=== PATIENT | male | born 1995 | race Hispanic/Latino ===

== ENCOUNTER 2018-10-10 08:35 | Day surgery (SDC) | payer OTHER ==
[2018-10-10] MEDS ORDERED: ONDANSETRON 4 MG/2 ML VIAL ONE (09:32)
[2018-10-10] MEDS ORDERED: MORPHINE 4 MG/ML SYR ONE (09:32)
[2018-10-10] MEDS ORDERED: NA CHLORIDE 0.9% 1,000 ML ONE (09:33)
[2018-10-10 09:37] LABS: Absolute Lymphocytes (CBC) 0.8 K/uL (0.7-4.9); Absolute Monocytes 0.6 K/uL (0.1-1.3); Absolute Neutrophil 11.9 K/uL (1.8-8.0); Basophils % 0.1 % (0-1.3); Eosinophils % 0.3 % (0-4.4); Hematocrit 38.8 % (39.6-49.0); Lymphocytes % 6.1 % (15.3-44.8); MCH 32.8 pg (27.0-35.0); MCV 94.2 fL (80-100); MPV 10.4 fL (7.6-11.3); Monocytes % 4.4 % (3.3-12.3); RBC Red Blood Cell Count 4.12 M/uL (4.33-5.43)
[2018-10-10 09:44] LABS: ALT/SGPT 23 U/L (12-78); AST/SGOT 19 U/L (15-37); Albumin 4.4 g/dL (3.4-5.0); Alkaline Phosphatase 63 U/L (45-117); BUN Blood Urea Nitrogen 15 mg/dL (7-18); Bicarbonate 27 mmol/L (21-32); Bilirubin Direct 0.2 mg/dL (0-0.2); Bilirubin Total 0.6 mg/dL (0.2-1.0); Glucose Level 117 mg/dL (74-106); Lipase 89 U/L (73-393); Potassium 3.8 mmol/L (3.5-5.1); Protein, Total 7.4 g/dL (6.4-8.2); Sodium Level 140 mmol/L (136-145)
--- NOTE | 2018-10-10 09:47 | RAD REPORT ---
EXAM DESCRIPTION: RAD - Chest Single View - 10/10/2018 9:36 am CLINICAL HISTORY: ABDOMINAL DISTENTION Chest pain. COMPARISON: No comparisons FINDINGS: Portable technique limits examination quality. The lungs are grossly clear. The heart is normal in size. No displaced fractures. IMPRESSION: No acute intrathoracic process suspected.
[2018-10-10 10:00] LABS: Urine Blood NEGATIVE (NEG); Urine Glucose NEGATIVE (NEG); Urine Protein NEGATIVE (NEG); Urine Specific Gravity >1.030 (1.005-1.030)
--- NOTE | 2018-10-10 10:09 | EDPHYS ---
Physician Documentation [facility] Name: Rory Augustine Age: 23 yrs Sex: Male : 1995 Arrival Date: 10/10/2018 Time: 08:39 Bed 16 Private MD: Adrian Gore R ED Physician Ger Weeks HPI: 10/10 09:13 This 23 yrs old Male presents to ER via Ambulatory with complaints of ana Abdominal Pain, Vomiting. 09:13 The patient presents to the emergency department with nausea, vomiting, abdominal pain, ana of the right lower quadrant. Onset: The symptoms/episode began/occurred 1 day(s) ago. Possible causes: unknown. The symptoms are aggravated by movement, pressure, The symptoms are alleviated by nothing. remaining still. Associated signs and symptoms: The patient has no apparent associated signs or symptoms. Severity of symptoms: At their worst the symptoms were moderate in the emergency department the symptoms are unchanged. The patient has not experienced similar symptoms in the past. Historical: - Allergies: 08:43 NKA; jl7 - Home Meds: 08:43 None [Active]; jl7 - PMHx: 08:43 None; jl7 - PSHx: 08:43 None; jl7 - Immunization history:: Adult Immunizations not up to date. - Social history:: Smoking status: Patient/guardian denies using tobacco. - Ebola Screening: : No symptoms or risks identified at this time. - Family history:: not pertinent. ROS: 09:13 Constitutional: Negative for fever, chills, and weight loss, Eyes: Negative for injury, ana pain, redness, and discharge, ENT: Negative for injury, pain, and discharge, Neck: Negative for injury, pain, and swelling, Cardiovascular: Negative for chest pain, palpitations, and edema, Respiratory: Negative for shortness of breath, cough, wheezing, and pleuritic chest pain, Back: Negative for injury and pain, : Negative for injury, bleeding, discharge, and swelling, MS/Extremity: Negative for injury and deformity, Skin: Negative for injury, rash, and discoloration, Neuro: Negative for headache, weakness, numbness, tingling, and seizure, Psych: Negative for depression, anxiety, suicide ideation, homicidal ideation, and hallucinations, Allergy/Immunology: Negative for hives, rash, and allergies, Endocrine: Negative for neck swelling, polydipsia, polyuria, polyphagia, and marked weight changes, Hematologic/Lymphatic: Negative for swollen nodes, abnormal bleeding, and unusual bruising. 09:13 Abdomen/GI: Positive for abdominal pain, of the right lower quadrant. 09:13 Abdomen/GI: Positive for nausea and vomiting, abdominal distension. ana Exam: 09:13 Constitutional: This is a well developed, well nourished patient who is awake, alert, ana and in no acute distress. Head/Face: Normocephalic, atraumatic. Eyes: Pupils equal round and reactive to light, extra-ocular motions intact. Lids and lashes normal. Conjunctiva and sclera are non-icteric and not injected. Cornea within normal limits. Periorbital areas with no swelling, redness, or edema. ENT: Nares patent. No nasal discharge, no septal abnormalities noted. Tympanic membranes are normal and external auditory canals are clear. Oropharynx with no redness, swelling, or masses, exudates, or evidence of obstruction, uvula midline. Mucous membranes moist. Neck: Trachea midline, no thyromegaly or masses palpated, and no cervical lymphadenopathy. Supple, full range of motion without nuchal rigidity, or vertebral point tenderness. No Meningismus. Chest/axilla: Normal chest wall appearance and motion. Nontender with no deformity. No lesions are appreciated. Cardiovascular: Regular rate and rhythm with a normal S1 and S2. No gallops, murmurs, or rubs. Normal PMI, no JVD. No pulse deficits. Respiratory: Lungs have equal breath sounds bilaterally, clear to auscultation and percussion. No rales, rhonchi or wheezes noted. No increased work of breathing, no retractions or nasal flaring. Back: No spinal tenderness. No costovertebral tenderness. Full range of motion. Male : Normal genitalia with no discharge or lesions. Skin: Warm, dry with normal turgor. Normal color with no rashes, no lesions, and no evidence of cellulitis. MS/ Extremity: Pulses equal, no cyanosis. Neurovascular intact. Full, normal range of motion. Neuro: Awake and alert, GCS 15, oriented to person, place, time, and situation. Cranial nerves II-XII grossly intact. Motor strength 5/5 in all extremities. Sensory grossly intact. Cerebellar exam normal. Normal gait. Psych: Awake, alert, with orientation to person, place and time. Behavior, mood, and affect are within normal limits. 09:13 Abdomen/GI: Inspection: abdomen appears normal, Bowel sounds: normal, Palpation: mild abdominal tenderness, in the right lower quadrant, Liver: Vital Signs: 08:43 BP 127 / 70; Pulse 66; Resp 18 S; Temp 98.6(O); Pulse Ox 100% on R/A; Weight 83.91 kg jl7 (R); Height 5 ft. 7 in. (170.18 cm) (R); Pain 6/10; 10:01 BP 126 / 64; Pulse 68; Resp 16; Pulse Ox 99% on R/A; Pain 3/10; ls4 11:06 BP 122 / 74; Pulse 66; Resp 18; Pulse Ox 98% on R/A; Pain 0/10; ls4 12:04 BP 126 / 70; Pulse 67; Resp 16; Pulse Ox 99% on R/A; ls4 13:00 BP 124 / 70; Pulse 68; Pulse Ox 99% on R/A; ls4 08:43 Body Mass Index 28.97 (83.91 kg, 170.18 cm) 7 MDM: 08:53 Patient medically screened. [facility] 09:16 Data reviewed: vital signs, nurses notes, lab test result(s), radiologic studies, CT [facility] scan, plain films. 10/10 09:13 Order name: Basic Metabolic Panel [facility] 10/10 09:13 Order name: CBC with Diff [facility] 10/10 09:13 Order name: Creatinine for Radiology [facility] 10/10 09:13 Order name: Hepatic Function [facility] 10/10 09:13 Order name: Lipase [facility] 10/10 09:31 Order name: Urine Dipstick--Ancillary (enter results) 10/10 09:13 Order name: Chest Single View XRAY [facility] 10/10 09:42 Order name: Creatinine (Radiology Only); Complete Time: 09:54 [facility] 10/10 09:44 Order name: CBC with Automated Diff; Complete Time: 14:03 [facility] 10/10 09:45 Order name: Basic Metabolic Panel; Complete Time: 09:54 [facility] 10/10 09:45 Order name: Liver (Hepatic) Function; Complete Time: 09:54 [facility] 10/10 09:45 Order name: Lipase; Complete Time: 09:54 [facility] 10/10 10:01 Order name: Urine Dipstick-Ancillary; Complete Time: 14:03 [facility] 10/10 10:11 Order name: CBC Smear Scan; Complete Time: 14:03 [facility] 10/10 09:13 Order name: IV Saline Lock; Complete Time: 09:14 [facility] 10/10 09:13 Order name: Labs collected and sent; Complete Time: 09:14 [facility] 10/10 09:13 Order name: CT Abd/Pelvis - W/Contrast: iv only [facility] 10/10 09:47 Order name: RAD; Complete Time: 09:54 [facility] 10/10 10:41 Order name: CT; Complete Time: 14:03 EDDE Administered Medications: 09:31 Drug: morphine 4 mg Route: IVP; Site: left antecubital; ls4 10:00 Follow up: Response: No adverse reaction; Pain is decreased ls4 09:31 Drug: Zofran 4 mg Route: IVP; Site: left antecubital; ls4 10:00 Follow up: Response: No adverse reaction; Nausea is decreased ls4 09:32 Drug: NS 0.9% 1000 ml Route: IV; Rate: 1 bolus; Site: left antecubital; ls4 11:00 Follow up: IV Status: Completed infusion iw 10:38 Drug: Zosyn 3.375 grams Route: IVPB; Infused Over: 60 mins; Site: left antecubital; ls4 11:43 Follow up: Response: No adverse reaction; IV Status: Completed infusion; IV Intake: [id number] 11:43 Drug: Flagyl 500 mg Volume: 100 ml; Route: IVPB; Rate: 200 ml/hr; Infused Over: 30 ls4 mins; Site: left antecubital; 12:15 Follow up: IV Status: Completed infusion iw Disposition: 10/10/18 10:09 Hospitalization ordered by Adebayo Guerra for Observation. Preliminary diagnosis is Acute appendicitis. - Bed requested for Operating Room. - Status is Observation. iw - Condition is Stable. - Problem is new. - Symptoms have improved. UTI on Admission? No Signatures: Dispatcher [employer] EDDE Ger Weeks MD MD cha Williams, Irene RN RN iw Javier Yadav RN RN jl7 Bridgett Lane RN RN ls4 Corrections: (The following items were deleted from the chart) 14:19 10:09 Hospitalization Ordered by Adebayo Guerra MD for Observation. Preliminary diagnosis iw is Acute appendicitis. Bed requested for Operating Room. Status is Observation. Condition is Stable. Problem is new. Symptoms have improved. UTI on Admission? No. ana
--- NOTE | 2018-10-10 10:09 | ER ---
Nurse's Notes [facility] Name: Rory Augustine Age: 23 yrs Sex: Male : 1995 Arrival Date: 10/10/2018 Time: 08:39 Bed 16 Private MD: Adrian Gore R Diagnosis: Acute appendicitis Presentation: 10/10 08:41 Presenting complaint: Patient states: Bilateral LQ pain began this morning, went to jl7 work then RLQ pain got worse, N/V, denies diarrhea. Transition of care: patient was not received from another setting of care. Onset of symptoms was October 10, 2018. Risk Assessment: Do you want to hurt yourself or someone else? Patient reports no desire to harm self or others. Initial Sepsis Screen: Does the patient meet any 2 criteria? No. Patient's initial sepsis screen is negative. Does the patient have a suspected source of infection? No. Patient's initial sepsis screen is negative. Care prior to arrival: None. 08:41 Method Of Arrival: Ambulatory [facility] 08:41 Acuity: NGUYỄN 3 jl7 Triage Assessment: 08:43 General: Appears in no apparent distress. uncomfortable, Behavior is calm, cooperative, jl7 appropriate for age. Pain: Complains of pain in right lower quadrant Pain does not radiate. Pain currently is 6 out of 10 on a pain scale. GI: Reports nausea, vomiting, Patient currently denies diarrhea. Historical: - Allergies: 08:43 NKA; jl7 - Home Meds: 08:43 None [Active]; jl7 - PMHx: 08:43 None; jl7 - PSHx: 08:43 None; jl7 - Immunization history:: Adult Immunizations not up to date. - Social history:: Smoking status: Patient/guardian denies using tobacco. - Ebola Screening: : No symptoms or risks identified at this time. - Family history:: not pertinent. Screenin:14 Abuse screen: Denies threats or abuse. Nutritional screening: No deficits noted. ls4 Tuberculosis screening: No symptoms or risk factors identified. Fall Risk None identified. Assessment: 09:14 General: Appears distressed, uncomfortable. Pain: Complains of pain in right lower ls4 quadrant. Neuro: No deficits noted. Cardiovascular: No deficits noted. Respiratory: Airway is patent Respiratory effort is even, unlabored, Respiratory pattern is regular, Breath sounds are clear bilaterally. GI: Bowel sounds present X 4 quads. Abdomen is tender to palpation in right lower quadrant Guarding noted in right lower quadrant. Derm: No deficits noted. Musculoskeletal: No deficits noted. 09:58 Reassessment: Patient and/or family updated on plan of care and expected duration. Pain ls4 level reassessed. Patient states symptoms have improved. Pain: Complains of pain in right lower quadrant Pain currently is 3 out of 10 on a pain scale. 11:04 Reassessment: Patient and/or family updated on plan of care and expected duration. Pain ls4 level reassessed. Patient states symptoms have improved. 12:06 Reassessment: Patient and/or family updated on plan of care and expected duration. Pain ls4 level reassessed. 13:47 Reassessment: Patient appears in no apparent distress at this time. Patient and/or ls4 family updated on plan of care and expected duration. Pain level reassessed. Patient states symptoms have improved. 14:02 Reassessment: Patient appears in no apparent distress at this time. pt readied for 4 surgical nurses. report given to surgery and SBAR by Nikki MONTILLA Pt left er in no distress for surgery. family at side. belongings sent with family. Vital Signs: 08:43 BP 127 / 70; Pulse 66; Resp 18 S; Temp 98.6(O); Pulse Ox 100% on R/A; Weight 83.91 kg jl7 (R); Height 5 ft. 7 in. (170.18 cm) (R); Pain 6/10; 10:01 BP 126 / 64; Pulse 68; Resp 16; Pulse Ox 99% on R/A; Pain 3/10; ls4 11:06 BP 122 / 74; Pulse 66; Resp 18; Pulse Ox 98% on R/A; Pain 0/10; ls4 12:04 BP 126 / 70; Pulse 67; Resp 16; Pulse Ox 99% on R/A; ls4 13:00 BP 124 / 70; Pulse 68; Pulse Ox 99% on R/A; ls4 08:43 Body Mass Index 28.97 (83.91 kg, 170.18 cm) jl7 ED Course: 08:39 Patient arrived in ED. mr 08:39 Adrian Gore MD is Private Physician. mr 08:43 Triage completed. jl7 08:43 Arm band placed on right wrist. jl7 08:53 Ger Weeks MD is Attending Physician. ana 08:[address], ROLDAN is Primary Nurse. ls4 09:14 Patient has correct armband on for positive identification. Placed in gown. Bed in low ls4 position. Call light in reach. Side rails up X 1. Warm blanket given. Pillow given. Diet: Patient is NPO. 09:14 No provider procedures requiring assistance completed. Inserted saline lock: 20 gauge ls4 in left antecubital area, using aseptic technique. 09:14 Initial lab(s) drawn, by me, sent to lab. Urine collected: clean catch specimen, clear. ls4 Inserted saline lock: Blood collected. 09:21 Urine collected: clean catch specimen, cloudy, saúl colored. gm 09:32 X-ray completed. Portable x-ray completed in exam room. Patient tolerated procedure jb2 well. 09:32 Basic Metabolic Panel Sent. ls4 09:32 CBC with Diff Sent. ls4 09:32 Creatinine for Radiology Sent. ls4 09:33 Hepatic Function Sent. ls4 09:33 Lipase Sent. ls4 09:53 Urine Dipstick--Ancillary (enter results) Sent. ls4 10:08 Adebayo Guerra MD is Hospitalizing Provider. ana 10:[address] kw1 10:19 CT completed. Patient tolerated procedure well. Patient moved back from CT. vm2 14:10 Surgical consent explained by staff, explained by physician, signed by patient. iw 14:15 Patient admitted, IV remains in place. iw Administered Medications: 09:31 Drug: morphine 4 mg Route: IVP; Site: left antecubital; ls4 10:00 Follow up: Response: No adverse reaction; Pain is decreased ls4 09:31 Drug: Zofran 4 mg Route: IVP; Site: left antecubital; ls4 10:00 Follow up: Response: No adverse reaction; Nausea is decreased ls4 09:32 Drug: NS 0.9% 1000 ml Route: IV; Rate: 1 bolus; Site: left antecubital; ls4 11:00 Follow up: IV Status: Completed infusion iw 10:38 Drug: Zosyn 3.375 grams Route: IVPB; Infused Over: 60 mins; Site: left antecubital; ls4 11:43 Follow up: Response: No adverse reaction; IV Status: Completed infusion; IV Intake: [id number] 11:43 Drug: Flagyl 500 mg Volume: 100 ml; Route: IVPB; Rate: 200 ml/hr; Infused Over: 30 ls4 mins; Site: left antecubital; 12:15 Follow up: IV Status: Completed infusion iw Intake: 11:43 IV: 50ml; Total: 50ml. ls4 Outcome: 10:09 Decision to Hospitalize by Provider. ana 14:15 Admitted to OR accompanied by nurse, family with patient, via wheelchair, Report called iw to ROLDAN Gil 14:15 Condition: good 14:15 Discharge instructions given to patient, family, Instructed on the need for admit, Demonstrated understanding of instructions. 14:19 Patient left the ED. iw Signatures: Ger Weeks MD MD cha Rivera, Mary mr Fajardo, Zachariah jb2 Nikki Roach, RN RN iw Javier Yadav RN RN danish7 Mercedes Daniel2 Mirlande Escamilla [address] RN RN ls4 Kristy Dennis
[2018-10-10 10:10] LABS: Blood Morphology Comment NOT SEEN (NOT SEEN); Platelet Estimate ADEQ; Urine White Blood Cell Casts OK
--- NOTE | 2018-10-10 10:41 | RAD REPORT ---
EXAM DESCRIPTION: CT - Abdomen Pelvis W Contrast - 10/10/2018 10:21 am CLINICAL HISTORY: Abdominal pain/right lower quadrant pain with vomiting COMPARISON: none. TECHNIQUE: Computed axial tomography of the abdomen pelvis was obtained. 100 cc Isovue-300 was admin istered intravenously. Oral contrast was not requested which limits evaluation of bowel. All CT scans are performed using dose optimization technique as appropriate and may include automated exposure control or mA/KV adjustment according to patient size. FINDINGS: The liver, spleen, pancreas, adrenal and kidneys appear unremarkable. Tiny hepatic cyst andrade spected. There is no evidence of diverticulitis. Tiny umbilical hernia The appendix extends superiorly laterally from the cecum. It is dilated. Ill-defined fluid surrounds the appendix. Small amount of ascites is seen within the pelvis. Pneumoperitoneum is not noted. IMPRESSION: Appendicitis
[2018-10-10] MEDS ORDERED: PIPER/TAZO/NS 3.375gm 3.375 GM/100 ML BAG ONE (10:43)
[2018-10-10] MEDS ORDERED: METRONIDAZOLE 500mg IVPB 500 MG/100 ML BAG IV ONE (11:48)
[2018-10-10] MEDS ORDERED: Ringers Lactate 1,000 ML IV ONE ×2 (14:33→16:11)
[2018-10-10] MEDS ORDERED: FENTANYL CITR 100 MCG/2 ML ONE ×2 (14:39→15:30)
[2018-10-10] MEDS: BUPIVACA 0.25%/EPI 0.0005% MDV 50 ML VIAL ONE ×2 (14:39→15:08)
[2018-10-10] MEDS ORDERED: PROPOFOL 200 MG/20 ML VIAL IV ONE (14:39)
[2018-10-10] MEDS ORDERED: LIDOCAINE 2% MPF 5 ML VIAL ONE (14:40)
[2018-10-10] MEDS ORDERED: GLYCOPYRROLATE 0.2 MG/ML SYR ONE ×2 (14:43→15:59)
[2018-10-10] MEDS ORDERED: ROCURONIUM 50 MG/5 ML VIAL IV ONE (14:43)
[2018-10-10] MEDS ORDERED: ONDANSETRON HCL 40 MG/20 ML VIAL ONE (14:43)
[2018-10-10] MEDS ORDERED: MIDAZOLAM HCL 2 MG/2 ML INJ ONE ×2 (14:43→16:12)
--- NOTE | 2018-10-10 15:58 | P.OP ---
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
[2018-10-10] MEDS ORDERED: MIDAZOLAM HCL 2 MG/2 ML INJ IV ONE (16:00)
[2018-10-10] MEDS ORDERED: MEPERIDINE HCL 25 MG/0.5 ML IV ONE ×2 (16:02→16:15)
[2018-10-10] MEDS ORDERED: MEPERIDINE HCL 25 MG/0.5 ML ONE ×2 (16:12→16:17)
[2018-10-10] MEDS ORDERED: HYDROCODONE/APAP 5/325 MG TAB ONE (17:07)
--- NOTE | 2018-10-10 23:45 | HP ---
Date of Admission: 10/10/2018 Brief History Of Present Illness: The patient is a 23-year-old male who presents to the hospital wit h approximately 2-1/2-day history of periumbilical and now right lower quadrant abdominal pain, got w orse and more significant over the course of the day. Sharp, stabbing, with some radiation through t o the right flank. It was associated with some nausea. No vomiting. No change in bowel or bladder habits. Subjective fever. No chills. He has never had similar episodes before in the past. The pa in got significantly worse; and as such, that is the reason for his presentation to the hospital. Past Medical History: Negative. Past Surgical History: Negative. Allergies: NO KNOWN DRUG ALLERGIES. Medications: None. Social History: Denies smoking, alcohol, or recreational drug use. 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 Family History: Reviewed and noncontributory. Review of Systems: A 10-point review of systems other than HPI, denies. Physical Examination: General: At the time of examination, he is awake, alert, and oriented. Psychiatric: He is appropriate and conversive. HEENT: Normocephalic. Sclerae are anicteric. Mucous membranes are moist. Oropharynx is clear. Neck: Supple. No JVD. Chest: Normal expansion and excursion. Cardiovascular: Regular rate and rhythm. Pulmonary: Clear to auscultation bilaterally. Abdomen: Soft with positive right lower quadrant focal peritonitis. Positive rebound. Positive gua rding. He also has a small umbilical hernia which is reducible. Extremities: No clubbing, cyanosis, or edema. Skin: Warm and dry. Laboratory Data: Laboratory examination reveals a white blood count of 13.4, hemoglobin is 13.5, hem atocrit 38.8, platelet count is 144, and neutrophils are 89%. His chemistry shows sodium 140, potass ium 3.8, chloride 107, carbon dioxide 27, BUN 15, creatinine 1.0, and glucose is 117. Total bilirubi n 0.6, direct bilirubin 0.2, AST 19, ALT 23, alkaline phosphatase is 63, and lipase is 89. UA is neg ative. He had a CT scan performed of the abdomen and pelvis, which was officially read as appendix extends l aterally from the cecum. It is dilated. Ill-defined fluid surrounds the appendix. Small amount of ascites is seen within the pelvis. Pneumoperitoneum is not noted. He also has a tiny umbilical anastasia ia. No evidence of diverticulitis. Official impression is acute appendicitis. Assessment And Plan: This is a 23-year-old male who presents with signs and symptoms consistent with acute appendicitis. 1.IV fluid hydration. 2.Antibiotic coverage. 3.I have explained this risks, benefits, and alternatives of laparoscopic and possible open appendec tanvi including, but not limited to bleeding, infection, damage to surrounding tissue, and need for fu rther operative procedures. The patient agrees to proceed as indicated. SUDHEER/VANESSA Voice ID: [id number]
--- NOTE | 2018-10-11 03:01 | OP ---
Date of Procedure: 10/10/2018 Surgeon: Adebayo Guerra MD, Community Service Aide: Lillian Betancourt. Preoperative Diagnosis: Acute appendicitis. Postoperative Diagnosis: Acute appendicitis. Procedure Performed: Laparoscopic appendectomy. Anesthesia: General endotracheal plus local with 0.25% Marcaine with epinephrine. Estimated Blood Loss: Less than 2 cc. Specimen: Vermiform appendix. Findings: 1.Likely urachal remnant. 2.Nonperforated appendicitis. Complications: None. Disposition: Transferred to recovery room in good condition. Procedure In Detail: After informed consent was obtained, the patient was brought to the operating r oom, prepped and draped in the usual sterile fashion. After adequate anesthesia was achieved, an inf raumbilical area was anesthetized with 0.25% Marcaine, sharply incised, and a 5-mm trocar was introdu rosmery into the abdomen without evidence of complication. Insufflation was obtained to 15 mmHg at this time. The area was inspected. There was no injury to vital structures upon entry into the abdomen. Additional trocar site chosen in the right lower quadrant. This was similarly anesthetized, sharply incised. A 5-mm trocar was introduced into the abdomen without evidence of complication. Additiona l trocar chosen in the left lower quadrant. This was similarly anesthetized, sharply incised. A 5-m m trocar was introduced into the abdomen without evidence of complication. The umbilical trocar was then up-sized to a 12 mm under direct visualization without evidence of complication. 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 I do not believe that the cyst or sin us was violated by the trocar. However, this was inspected at the end of the procedure and was not f ound to be in violation of the continuity of the structure to the umbilicus after removal of the troc ar. The patient was then positioned in the head down, right side up position. Ratcheted grasper was used to remove the fat from the right lower quadrant. There was evidence of acute appendicitis in t his area with a dilated appendix with some suppurative changes. There was no evidence of perforation at this time. The appendix was grasped and elevated and a mesoappendiceal window was created with t [place] retractor and the Endo BELEN 35 blue load fired across the base of the appendix, good appro ximation of tissue at the confluence of the cecum. The LigaSure was then used to take the mesoappend ix down without evidence of complication with good hemostatic control. The appendix was then placed in an Endo Catch bag, removed via the umbilical trocar. Re-insufflation was obtained at this time. The area was copiously irrigated multiple times to completely clear. The area was inspected. Proper hemostasis was achieved at this time without any additional hemostatic maneuvers and the staple line was found to be good without any leakage. The abdomen was then copiously irrigated multiple times a nd dried with suction. The patient was positioned into neutral position. The remainder of the irrig ant was then irrigated once again and suctioned out once again. The umbilical trocar was then remove d. The area was inspected. There was no leakage of any fluid at this time and the umbilical trocar site was closed with a Matheus-Tony suture passer using 0 Vicryl in interrupted fashion with good approximation of tissues. The abdomen was then completely desufflated under direct visualization wit hout evidence of complication. All trocars were removed. All skin incisions were copiously irrigate d and closed with a 4-0 Monocryl in a running fashion. Dermabond was placed over top. The patient t olerated the procedure well without evidence of complication, transferred to the PACU in good condition. All counts were correct at the end of the case. SUDHEER/VANESSA Voice ID: [id number] Report ID: [id number]
== END 2018-10-10 17:56 | disposition home or self-care (01) ==
LOC: ER 08:35 → OR 10:12
PROVIDERS: ATTEND Surgery
PROC: 0DTJ4ZZ Resection of Appendix, Percutaneous Endoscopic Approach (ICD-10-PCS; principal; 2018-10-10 15:00)
DX: K35.80 Unspecified acute appendicitis (principal)
CPT/HCPCS: 36415; 71045; 74177; 80048; 80076; 81003; 83690; 85025; 88304; 96361; 96365; 96367; 96375; 99285; J2175; J2250; J2405; J2543; J2704; J3010; J7030; Q9967

== ENCOUNTER 2022-11-07 21:42 | Emergency (ER) | payer SELFPAY ==
--- OUTSIDE RECORDS SUMMARY | 2022-11-07 21:45 | XMS REPORT | Continuity of Care Document ---
:1995 Author Organization [facility] t Address [address] [place] [address] Care Team Providers Name Role Phone No, Pcp [facility] Primary Care Physician Unavailable Payers Payer Name Policy Type Policy Number Effective Date Expiration Date S ource Problems This patient has no known problems. Allergies, Adverse Reactions, Alerts Allergy Allergy Status Severity Reaction(s) Onset Inactive Treating Comm ents Source Name Type Date Date Clinician Unable DA Active U MCSETXm to 12-22 Assess 00:00: 00 Social History Social Habit Start Date Stop Date Quantity Comments Source History SDOH [facility] St[facility] Dr[facility] History SDOH [facility] Alcohol Binge Medical [facility] History SDOH [facility] Alcohol Comment Medical C enter History SDOH 2019-07-31 2019-07-[address] [facility] Alcohol Frequency 00:00:00 00:00:00 [facility] Tobacco use and 2019-07-30 2019-07-[address] [facility] exposure 00:00[facility]00 [facility]00 [facility] Alcohol intake 2019-07-30 2019-07-[address] [facility] 00:[facility]00 00:00:00 non-drinker of Medical Ce nter alcohol (finding) Sex Assigned At [address] [facility] 00:[facility] Smoking Status Start Date Stop Date Source Never smoker [facility] Center Medications Ordered Filled Start Stop Current Ordering Indication Dosage Frequency Signature Comments Components Source Medication Medication Date Date Medication? Clinician (SIG) Name Name naproxen Yes Right flank 500mg Take [address] [facility] [address] (NAPROSYN) 07-30 pain tablet [facility] 500 MG 00:00: (500 mg Medical tablet 00 total) by Center mouth 2 (two) times daily as needed TAKE WITH FOOD. cyclobenzap Yes Right flank 10mg Take [address] [facility] - pain tablet (10 [facility] (FLEXERIL) 00:00: mg total) Me dical 10 MG 00 by mouth 3 Center tablet (three) times daily as needed for Muscle spasms. ondansetron Yes Right flank 4mg Take [address] [facility] (ZOFRAN-ODT 07-30 pain tablet (4 [facility] ) 4 MG 00:00: mg total) Medica l disintegrat 00 by mouth Cent er ing tablet every 8 (eight) hours as needed. acetaminoph Yes Right flank 1{tbl} Take 1-[address] en-codeine 07-30 pain tablets by [facility] (TYLENOL 00:00: mouth Medical #3) 300-30 00 every 8 Center mg per (eight) tablet hours as needed for Pain. Max Daily Amount: 6 tablets Procedures This patient has no known procedures. Encounters Start End Encounter Admission Attending Care Care Encounter Source Date/Time Date/Time Type Type Clinicians Facility Department ID 2021-12-22 Inpatient MCSETXm MCSETXm [id number] MCSETXm 23:15:00 08 Results Test Description Test Time Test Comments Results Result [facility] e Comments RAD, RIBS, RIGHT 2019-07-30 Reason for FINAL REPORT PATIENT 22:05:00 exam:->BACK ID: [id number] RAD, PAINRight flank RIBS, RIGHT \T\ PA pain CHEST, MIN 3 VIEWS CLINICAL INDICATION: PAIN COMPARISON: None FINDINGS: Single frontal view of the chest as well as frontal and oblique views of the right-sided ribs were obtained. The lungs are clear. There is no pneumothorax. The heart is normal in size. The hilar and mediastinal contours are normal. The bony thorax is unremarkable. There is no displaced right rib fracture. IMPRESSION: Clear lungs. No pneumothorax.No displaced right rib fracture. Signed: Trista Diaz MDReport Verified Date/Time: 07/30/2019 22:05:49 , SPINE, 2019-07-30 Reason for FINAL REPORT PATIENT LUMBAR, 2 OR 3 22:00:00 exam:->BACK ID: [id number] RAD, VIEWS PAINRight flank SPINE, LUMBAR, 2 OR pain 3 VIEWS CLINICAL INDICATION: BACK PAIN COMPARISON: None FINDINGS: Frontal and lateral views of the lumbar spine were obtained. Vertebral body heights and alignment are maintained. The intervertebral disc space heights are preserved. The bilateral sacroiliac joints are patent. The sacrum is partially obscured by overlying stool and bowel gas. IMPRESSION: No vertebral body compression fracture or subluxation. Signed: Trista Diaz Verified Date/Time: 07/30/2019 22:00:56
--- NOTE | 2022-11-07 23:46 | EDPHYS ---
Physician Documentation [facility] Name: Rory Augustine Age: 27 yrs Sex: Male : 1995 Arrival Date: 11/07/2022 Time: 21:52 Bed DIS6 Private MD: ED Physician Cisco Marin HPI: 11/07 23:21 This 27 yrs old Male presents to ER via Ambulatory with complaints of Sore kb Throat. 23:46 The patient presents with sore throat. The patient describes throat pain as constant. kb Onset: The symptoms/episode began/occurred yesterday. Severity of symptoms: At their worst the symptoms were mild, in the emergency department the symptoms are unchanged. Modifying factors: The symptoms are alleviated by nothing, the symptoms are aggravated by swallowing, Patient's oral intake status: good. Associated signs and symptoms: Pertinent positives: chest pain, Sore throat. The patient has not experienced similar symptoms in the past. The patient has not recently seen a physician. Pt reports sore throat since yesterday. States he had a 30 min episode of chest pain earlier today as well. Historical: - Allergies: 22:22 NKA; vc1 - Home Meds: 22:22 None [Active]; vc1 - PMHx: 22:22 None; vc1 - PSHx: 22:22 None; vc1 - Immunization history:: Client reports receiving the 2nd dose of the Covid vaccine. - Social history:: Smoking status: Reported history of juuling and/or vaping. ROS: 23:21 Constitutional: Negative for fever, chills, and weight loss. kb 23:21 ENT: Positive for sore throat. 23:21 Cardiovascular: Positive for chest pain. 23:21 All other systems are negative. Exam: 22:23 Constitutional: This is a well developed, well nourished patient who is awake, alert, kb and in no acute distress. Head/Face: Normocephalic, atraumatic. Cardiovascular: Regular rate and rhythm with a normal S1 and S2. No gallops, murmurs, or rubs. No pulse deficits. Respiratory: Respirations even and unlabored. No increased work of breathing. Talking in full sentences Abdomen/GI: Soft, non-tender. No distention Skin: Warm, dry with normal turgor. Normal color. MS/ Extremity: Pulses equal, no cyanosis. Neurovascular intact. Full, normal range of motion. Neuro: Awake and alert, GCS 15, oriented to person, place, time, and situation. Moves all extremities. Normal gait. Psych: Awake, alert, with orientation to person, place and time. Behavior, mood, and affect are within normal limits. 22:23 ECG was reviewed by the Attending Physician. 22:37 ENT: External ear(s): are unremarkable, Ear canal(s): are normal, TM's: are normal, kb Posterior pharynx: Airway: normal, no evidence of obstruction, swelling, that is mild, erythema, that is moderate. Vital Signs: 22:12 Weight 92.99 kg; Height 5 ft. 7 in. (170.18 cm); vc1 22:17 BP 125 / 72 LA; Pulse 67; Resp 18; Temp 97.8(O); Pulse Ox 99% on R/A; Weight 92.99 kg; mm9 Height 5 ft. 7 in. (170.18 cm); 23:57 BP 122 / 76; Pulse 66; Resp 16; Pulse Ox 100% on R/A; ll3 22:17 Body Mass Index 32.11 (92.99 kg, 170.18 cm) mm9 MDM: 21:57 Patient medically screened. kb 23:21 Data reviewed: vital signs, nurses notes. Data interpreted: Pulse oximetry: on room air kb is 99 %. Interpretation: normal. 23:46 Counseling: I had a detailed discussion with the patient and/or guardian regarding: the kb historical points, exam findings, and any diagnostic results supporting the discharge/admit diagnosis, lab results, radiology results, the need for outpatient follow up, a family practitioner, to return to the emergency department if symptoms worsen or persist or if there are any questions or concerns that arise at home. 11/07 22:09 Order name: Strep; Complete Time: 23:20 kb 11/07 23:20 Order name: Throat Culture EDMS 11/07 22:09 Order name: EKG; Complete Time: 22:10 kb 11/07 22:09 Order name: EKG - Nurse/Tech; Complete Time: 22:32 kb 11/07 22:09 Order name: Chest Single View XRAY kb EC:23 Rate is 62 beats/min. Rhythm is regular. QRS [place] is Normal. TN interval is normal at kb 136 msec. QRS interval is normal at 88 msec. QT interval is normal at 387 msec. Administered Medications: No medications were administered Disposition: 11/08 00:05 Co-signature as Attending Physician, Cisco Marin MD. rn Disposition Summary: 11/07/22 23:46 Discharge Ordered Location: Home kb Condition: Stable kb Diagnosis - Acute pharyngitis, unspecified kb Followup: kb - With: Emergency Department - When: As needed - Reason: Worsening of condition Followup: kb - With: Private Physician - When: 2 - 3 days - Reason: Recheck today's complaints, Continuance of care, Re-evaluation by your physician Discharge Instructions: - Discharge Summary Sheet kb - Pharyngitis, [id number] kb Forms: - Medication Reconciliation Form kb - Thank You Letter kb - Antibiotic Education kb - Prescription Opioid Use kb Signatures: Dispatcher [employer] EDMS Dyan Jiménez, HERNAN-C HERNAN-Cisco Mcmullen MD MD rn Calcote, Vanessa, RN RN vc1 Corrections: (The following items were deleted from the chart) 11/07 22:37 22:23 Constitutional: This is a well developed, well nourished patient who is awake, kb alert, and in no acute distress. Head/Face: Normocephalic, atraumatic. ENT: Moist Mucous membranes Cardiovascular: Regular rate and rhythm with a normal S1 and S2. No gallops, murmurs, or rubs. No pulse deficits. Respiratory: Respirations even and unlabored. No increased work of breathing. Talking in full sentences Abdomen/GI: Soft, non-tender. No distention Skin: Warm, dry with normal turgor. Normal color. MS/ Extremity: Pulses equal, no cyanosis. Neurovascular intact. Full, normal range of motion. Neuro: Awake and alert, GCS 15, oriented to person, place, time, and situation. Moves all extremities. Normal gait. Psych: Awake, alert, with orientation to person, place and time. Behavior, mood, and affect are within normal limits. kb
--- NOTE | 2022-11-07 23:46 | ER ---
Nurse's Notes [facility] Name: Rory Augustine Age: 27 yrs Sex: Male : 1995 Arrival Date: 11/07/2022 Time: 21:52 Bed DIS6 Private MD: Diagnosis: Acute pharyngitis, unspecified Presentation: 11/07 22:12 Chief complaint: Patient states: "Sharp pain to center of chest for 30 minutes but it vc1 doesn't hurt now. I also have a sore throat.". Coronavirus screen: Vaccine status: Patient reports receiving the 2nd dose of the covid vaccine. Ebola Screen: No symptoms or risks identified at this time. Risk Assessment: Do you want to hurt yourself or someone else? Patient reports no desire to harm self or others. Onset of symptoms was November 07, 2022. 22:12 Method Of Arrival: Ambulatory vc1 22:12 Acuity: NGUYỄN 4 vc1 23:57 Initial Sepsis Screen: Does the patient meet any 2 criteria? No. Patient's initial ll3 sepsis screen is negative. Does the patient have a suspected source of infection? No. Patient's initial sepsis screen is negative. Historical: - Allergies: 22:22 NKA; vc1 - Home Meds: 22:22 None [Active]; vc1 - PMHx: 22:22 None; vc1 - PSHx: 22:22 None; vc1 - Immunization history:: Client reports receiving the 2nd dose of the Covid vaccine. - Social history:: Smoking status: Reported history of juuling and/or vaping. Screenin:21 [facility] ED Fall Risk Assessment (Adult) History of falling in the last 3 months, vc1 including since admission No falls in past 3 months (0 pts) Confusion or Disorientation No (0 pts) Intoxicated or Sedated No (0 pts) Impaired Gait No (0 pts) Mobility Assist Device Used No (0 pt) Altered Elimination No (0 pt) Score/Fall Risk Level 0 - 2 = Low Risk Maintained a safe environment. Abuse screen: Denies threats or abuse. Nutritional screening: No deficits noted. Tuberculosis screening: No symptoms or risk factors identified. Fall Risk No fall in past 12 months (0 pts). 23:58 Humpty Dumpty Scale Fall Assessment Tool (age< 18yrs) Age 13 years and above (1 pt). ll3 Assessment: 22:22 Pain: Complains of pain in neck. Respiratory: Airway is patent Respiratory effort is vc1 even, unlabored, Respiratory pattern is regular, symmetrical, Breath sounds are clear. EENT: Throat is reddened. 23:27 Reassessment: Patient appears in no apparent distress at this time. Patient is alert, aa9 oriented x 3, equal unlabored respirations, skin warm/dry/pink. Vital Signs: 22:12 Weight 92.99 kg; Height 5 ft. 7 in. (170.18 cm); vc1 22:17 BP 125 / 72 LA; Pulse 67; Resp 18; Temp 97.8(O); Pulse Ox 99% on R/A; Weight 92.99 kg; mm9 Height 5 ft. 7 in. (170.18 cm); 23:57 BP 122 / 76; Pulse 66; Resp 16; Pulse Ox 100% on R/A; ll3 22:17 Body Mass Index 32.11 (92.99 kg, 170.18 cm) mm9 ED Course: 21:52 Patient arrived in ED. ja2 21:54 Dyan Jim[facility]nez [facility]-C [facility] kb 21:54 Cisoc Marin MD is Attending Physician. kb 22:21 Triage completed. vc1 22:23 Patient has correct armband on for positive identification. Bed in low position. Call vc1 light in reach. 22:32 Surekha Mcclellan, RN is Primary Nurse. aa9 22:32 Strep Sent. aa9 23:05 Chest Single View XRAY In Process Unspecified. EDMS 23:57 No provider procedures requiring assistance completed. Patient did not have IV access ll3 during this emergency room visit. 23:58 Arm band placed on Patient placed in an exam room, on a stretcher, on pulse oximetry. ll3 Administered Medications: No medications were administered Medication: 23:57 VIS not applicable for this client. ll3 Outcome: 23:46 Discharge ordered by . kb 23:57 Discharged to home ambulatory. ll3 23:57 Condition: stable 23:57 Discharge instructions given to patient, Instructed on discharge instructions, follow up and referral plans. Demonstrated understanding of instructions, follow-up care. 23:58 Patient left the ED. ll3 Signatures: Dispatcher [employer] EDMS Dyan Jiménez FNP-C REAL ESTATE UTILIZATION OFFICER-Ckb Monse Moran [place], RN RN ll3 Adrianne Hollins, RN RN vc1 Surekha Mcclellan, RN RN aa9 Taylor Grier mm9
[2022-11-08 00:20] VITALS: TEMP 97.8
[2022-11-08 00:21] VITALS: BP 122/76; O2SAT 100
--- NOTE | 2022-11-08 12:21 | RAD REPORT ---
EXAM DESCRIPTION: RAD - Chest Single View - 11/07/2022 11:03 pm CLINICAL HISTORY: The patient is 27 years old and is Male; CHEST PAIN TECHNIQUE: Frontal view of the chest. COMPARISON: No relevant prior studies available. FINDINGS: Lungs: Unremarkable. No consolidation. Pleural space: Unremarkable. No pneumothorax. Heart: Unremarkable. Mediastinum: Unremarkable. Bones/joints: Unremarkable. IMPRESSION: No acute findings in the chest. Electronically signed by: Michael Steawrd MD 11/07/2022 11:46 PM LEAN LEADER Due to temporary technical issues with the PACS/Fluency reporting system, reports are being signed by the in house radiologists without review as a courtesy to insure prompt reporting. The interpreting radiologist is fully responsible for the content of the report.
--- NOTE | 2022-11-09 15:18 | EKG ---
Test Date: 2022-11-07 Test Time: 22:22:21 Fitter Machinist: SUJATHA MEASUREMENT RESULTS: Intervals: Rate: 62 OR: 136 QRSD: 88 QT: 382 QTc: 387 [place]: P: 44 OR: 136 QRS: 49 T: 36 INTERPRETIVE STATEMENTS: Normal sinus rhythm with sinus arrhythmia Normal ECG No previous ECG available for comparison Electronically Signed On 11-09-22 15:16:01 SET ILLUSTRATOR by Himanshu Lopes
== END 2022-11-07 23:58 | disposition home or self-care (01) ==
LOC: ER 21:42
DX: J02.9 Acute pharyngitis, unspecified (principal)
CPT/HCPCS: 71045; 87070; 87081; 93005; 99283

== ENCOUNTER 2023-09-23 08:36 | Emergency (ER) | payer SELFPAY ==
--- OUTSIDE RECORDS SUMMARY | 2023-09-23 08:39 | XMS REPORT | Continuity of Care Document ---
:1995 Author Organization [facility] t Address [address] [place] [address] Care Team Providers Name Role Phone No, Pcp [facility] Primary Care Physician Unavailable Payers Payer [...] Source History SDOH [facility] Alcohol Comment Medical C enter History SDOH [facility] Alcohol Std Drinks Medica l Center History SDOH [facility] Alcohol Binge Medical [facility] History SDOH 2019-07-31 2019-07-[address] [...] Date Source Never smoker [facility] Center Medications Ordered Filled Start Stop Current Ordering Indication Dosage Frequency Signature Comments Components Source Medication Medication Date Date Medication? Clinician (SIG) Name Name naproxen Yes Right flank 500mg Take [address] [facility] [address] (NAPROSYN) 9-09 pain tablet [facility] 500 MG 00:00: (500 mg Medical tablet 00 total) by Center mouth 2 (two) times daily as needed TAKE WITH FOOD. cyclobenzap Yes Right flank 10mg Take [address] [facility] 9-09 pain tablet (10 [facility] (FLEXERIL) 00:00: mg total) Me dical 10 MG 00 by mouth 3 Center tablet (three) times daily as needed for Muscle spasms. ondansetron Yes Right flank 4mg Take [address] [facility] [address] (ZOFRAN-ODT 9-09 pain tablet (4 [facility] ) 4 MG 00:00: mg total) Medica l disintegrat 00 by mouth Cent er ing tablet every 8 (eight) hours as needed. acetaminoph Yes Right flank 1{tbl} Take 1-[address] en-codeine 9-09 pain tablets by [facility] (TYLENOL 00:00: mouth Medical #3) 300-30 00 every 8 Center mg per (eight) tablet hours as needed for Pain. Max Daily Amount: 6 tablets naproxen Yes Right flank 500mg Take [address] [facility] (NAPROSYN) 9-09 pain tablet [facility] 500 MG 00:00: (500 mg Medical tablet 00 total) by Center mouth 2 (two) times daily as needed TAKE WITH FOOD. cyclobenzap Yes Right flank 10mg Take [address] [facility]ine 9-09 pain tablet (10 [facility] (FLEXERIL) 00:00: mg total) Me dical 10 MG 00 by mouth 3 Center tablet (three) times daily as needed for Muscle spasms. ondansetron Yes Right flank 4mg Take [address] [facility] (ZOFRAN-ODT 9-09 pain tablet (4 [facility] ) 4 MG 00:00: mg total) Medica l disintegrat 00 by mouth Cent er ing tablet every 8 (eight) hours as needed. acetaminoph Yes Right flank 1{tbl} Take 1-[address] en-codeine 9-09 pain tablets by [facility] (TYLENOL 00:00: mouth Medical #3) 300-30 00 every 8 Center mg per (eight) tablet hours as needed for Pain. Max Daily Amount: 6 tablets Procedures This patient has no known procedures. Encounters Start End Encounter Admission Attending Care Care Encounter Source Date/Time Date/Time Type Type Clinicians Facility Department ID 2021-12-22 Inpatient MCSETXm MCSETXm [id number] MCSETXm 23:15:00 08 Results Test Description Test Time Test Comments Results Result [facility] Comments RAD, RIBS, RIGHT 2019-07-30 Reason for FINAL REPORT PATIENT 22:05:00 exam:->BACK ID: [id number] RAD, PAINRight flank RIBS, RIGHT \T\ PA [...] displaced right rib fracture. Signed: Trista Diaz Verified Date/Time: 07/30/2019 22:05:49 , SPINE, 2019-07-30 Reason for FINAL REPORT PATIENT LUMBAR, 2 OR 3 22:00:00 exam:->BACK ID: [id number] RAD, VIEWS PAINRight flank SPINE, LUMBAR, 2 [...]
[2023-09-23] MEDS ORDERED: FLUORESCEIN SODIUM 1 MG/WRAP ONE (09:02)
--- NOTE | 2023-09-23 09:19 | ER ---
Nurse's Notes [facility] Name: Rory Augustine Age: 28 yrs Sex: Male : 1995 Arrival Date: 09/23/2023 Time: 08:36 Bed 10 Private MD: Diagnosis: Injury of conjunctiva and corneal abrasion without foreign body, right eye Presentation: 09/23 08:43 Chief complaint: Right eye pain and slight blurred vision x 3-4 days. Coronavirus hb screen: At this time, the client does not indicate any symptoms associated with coronavirus-19. Ebola Screen: No symptoms or risks identified at this time. Initial Sepsis Screen: Does the patient meet any 2 criteria? No. Patient's initial sepsis screen is negative. Does the patient have a suspected source of infection? No. Patient's initial sepsis screen is negative. Risk Assessment: Do you want to hurt yourself or someone else? Patient reports no desire to harm self or others. Onset of symptoms was September 20, 2023. 08:43 Method Of Arrival: Ambulatory hb 08:43 Acuity: NGUYỄN 4 hb Historical: - Allergies: 08:45 NKA; hb - Home Meds: 08:45 None [Active]; hb - PMHx: 08:45 None; hb - PSHx: 08:45 None; hb - Immunization history:: Adult Immunizations up to date. - Social history:: Smoking status: Patient denies any tobacco usage or history of. Screenin:45 [facility] ED Fall Risk Assessment (Adult) Score/Fall Risk Level 0 - 2 = Low Risk hb Oriented to surroundings, Maintained a safe environment. Abuse screen: Denies threats or abuse. Denies injuries from another. Nutritional screening: No deficits noted. Tuberculosis screening: No symptoms or risk factors identified. Assessment: 08:45 General: Appears in no apparent distress. Behavior is calm, cooperative. Pain: Pain hb currently is 1 out of 10 on a pain scale. Neuro: Level of Consciousness is awake, alert, obeys commands, Oriented to person, place, time, situation. Cardiovascular: Patient's skin is warm and dry. Respiratory: Respiratory effort is even, unlabored, Respiratory pattern is regular, symmetrical. GI: No signs and/or symptoms were reported involving the gastrointestinal system. : No signs and/or symptoms were reported regarding the genitourinary system. EENT: Reports right eye pain. Derm: Skin is pink, warm \T\ dry. Musculoskeletal: No signs and/or symptoms reported regarding the musculoskeletal system. Vital Signs: 08:43 BP 129 / 80; Pulse 79; Resp 16; Temp 98.1(O); Pulse Ox 99% on R/A; Weight 91.17 kg; hb Height 5 ft. 7 in. ; Pain /; 08:43 Body Mass Index 31.48 (91.17 kg, 170.18 cm) hb 08:43 Pain Scale: Adult hb Visual Acuity: 09:11 Left Eye Visual acuity 20/13, ; Right Eye Visual acuity 20/13, ; Both Eyes Visual hb acuity 20/13; Without Lenses; ED Course: 08:38 Patient arrived in ED. 4 08:38 Glenny Villanueva FNP [facility] 08:38 Cisco Marin MD is Attending Physician. [facility] 08:45 Triage completed. hb 08:45 Patient has correct armband on for positive identification. Provided Education on: . hb 08:45 No provider procedures requiring assistance completed. Patient did not have IV access hb during this emergency room visit. 09:11 Arm band placed on. hb 09:18 Dejuan Vaz MD is Referral Physician. [facility] Administered Medications: 09:11 Drug: Tetracaine Ophthalmic Drops 0.5 % 1 drops Ophthalmic once Route: Ophthalmic; hb Site: right eye; Medication: 08:45 VIS not applicable for this client. hb Outcome: 09:18 Discharge ordered by . [facility] 09:26 Discharged to home ambulatory, hb 09:26 Condition: stable 09:26 Discharge instructions given to patient, Instructed on discharge instructions, follow up and referral plans. medication usage, Demonstrated understanding of instructions, follow-up care, medications, Prescriptions given X 1, 09:27 Patient left the ED. Signatures: Tanisha Yi, ROLDAN RN Arielle Piña rg4 Glenny Villanueva FNP FNP [facility]
--- NOTE | 2023-09-23 09:19 | EDPHYS ---
Physician Documentation [facility] Name: Rory Augustien Age: 28 yrs Sex: Male : 1995 Arrival Date: 09/23/2023 Time: 08:36 Bed 10 Private MD: ED Physician Cisco Marin HPI: 09/23 08:38 This 28 yrs old Male presents to ER via Unassigned with complaints of Eye jh7 Problem. 08:38 The patient is experiencing blurred vision, foreign body sensation, pain, The patient jh7 sustained Unknown. to the right eye. Onset: The symptoms/episode began/occurred 4 day(s) ago. Associated signs and symptoms: Pertinent negatives: chills, dizziness, ear ache, fever, headache. 28-year-old male presents to the ER complaining of right eye pain, foreign body sensation, photosensitivity, and slight blurred vision since Tuesday. 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 He denies any medical problems or allergies.. Historical: - Allergies: 08:45 NKA; hb - Home Meds: 08:45 None [Active]; hb - PMHx: 08:45 None; hb - PSHx: 08:45 None; hb - Immunization history:: Adult Immunizations up to date. - Social history:: Smoking status: Patient denies any tobacco usage or history of. ROS: 08:38 Constitutional: Negative for fever, chills, and weight loss, Eyes: Negative for injury, jh7 pain, redness, and discharge, Neck: Negative for injury, pain, and swelling, Cardiovascular: Negative for chest pain, palpitations, and edema, Respiratory: Negative for shortness of breath, cough, wheezing, and pleuritic chest pain, Abdomen/GI: Negative for abdominal pain, nausea, vomiting, diarrhea, and constipation, Back: Negative for injury and pain, MS/Extremity: Negative for injury and deformity, Skin: Negative for injury, rash, and discoloration, Neuro: Negative for headache, weakness, numbness, tingling, and seizure, 08:38 Eyes: Positive for blurry vision, foreign body sensation, pain, of the outer aspect of conjuctiva of right eye, iris of right eye and inner aspect of conjuctiva of right eye, Negative for vision loss, visual disturbance, 08:38 All other systems are negative, Exam: 08:38 Constitutional: This is a well developed, well nourished patient who is awake, alert, jh7 and in no acute distress. Head/Face: Normocephalic, atraumatic. ENT: Nares patent. No nasal discharge, no septal abnormalities noted. Tympanic membranes are normal and external auditory canals are clear. Oropharynx with no redness, swelling, or masses, exudates, or evidence of obstruction, uvula midline. Mucous membranes moist. Cardiovascular: Regular rate and rhythm with a normal S1 and S2. No gallops, murmurs, or rubs. Normal PMI, no JVD. No pulse deficits. Respiratory: Lungs have equal breath sounds bilaterally, clear to auscultation and percussion. No rales, rhonchi or wheezes noted. No increased work of breathing, no retractions or nasal flaring. Abdomen/GI: Soft, non-tender, with normal bowel sounds. No distension or tympany. No guarding or rebound. No evidence of tenderness throughout. Back: No spinal tenderness. No costovertebral tenderness. Full range of motion. Skin: Warm, dry with normal turgor. Normal color with no rashes, no lesions, and no evidence of cellulitis. Neuro: Awake and alert, GCS 15, oriented to person, place, time, and situation. Motor strength 5/5 in all extremities. Sensory grossly intact. Normal gait. 08:38 Eyes: Periorbital structures: appear normal, Pupils: equal, round, and reactive to light and accomodation, Extraocular movements: intact throughout, Conjunctiva: no acute changes, Corneas: are normal, abrasion, that is small, on the right, at 2 o'clock, foreign body, is not appreciated, a fluorescein strip employed to appreciate the findings, Sclera: no appreciated abnormality, Anterior chamber: normal, no hyphema, on appreciated narrow angle closure, Lids and lashes: appear normal, Vital Signs: 08:43 BP 129 / 80; Pulse 79; Resp 16; Temp 98.1(O); Pulse Ox 99% on R/A; Weight 91.17 kg; hb Height 5 ft. 7 in. ; Pain 11/30; 08:43 Body Mass Index 31.48 (91.17 kg, 170.18 cm) hb 08:43 Pain Scale: Adult hb Visual Acuity: 09:11 Left Eye Visual acuity 20/13, ; Right Eye Visual acuity 20/13, ; Both Eyes Visual hb acuity 20/13; Without Lenses; Procedures: 09:19 Eye Exam: Tiny corneal abrasion noted on the right eye. 7 09:19 Eye Exam: Tonometry result 19 in the right eye. 7 MDM: 08:38 Patient medically screened. 7 09:19 Differential diagnosis: Corneal abrasion of Corneal ulcer of Foreign body in Acute jh7 glaucoma in right eye. 09:19 Data reviewed: vital signs, nurses notes. I considered the following discharge [facility] prescriptions or medication management in the emergency department Medications were administered in the Emergency Department. See MAR. Counseling: I had a detailed discussion with the patient and/or guardian regarding the historical points, exam findings, and any diagnostic results supporting the discharge/admit diagnosis, the need for outpatient follow up, Ophthalmology, to return to the emergency department if symptoms worsen or persist or if there are any questions or concerns that arise at home. Response to treatment: the patient's symptoms have mildly improved after treatment. 09/23 08:43 Order name: Eye Tray; Complete Time: 08:47 jh7 09/23 08:43 Order name: Fluoresene Opth strip; Complete Time: 08:47 7 09/23 08:43 Order name: Visual Acuity; Complete Time: 09:11 jh7 Administered Medications: 09:11 Drug: Tetracaine Ophthalmic Drops 0.5 % 1 drops Ophthalmic once Route: Ophthalmic; Site: right eye; Disposition: 11:31 Co-signature as Attending Physician, Cisco Marin MD I reviewed the patient's care rn provided by the Advanced Practice Provider and agree with the diagnosis and treatment plan. Disposition Summary: 09/23/23 09:18 Discharge Ordered Notes: Location: Home [facility] Problem: new [facility] Symptoms: are unchanged [facility] Condition: Stable [facility] Diagnosis - Injury of conjunctiva and corneal abrasion without foreign body, right eye [facility] Followup: [facility] - With: Dejuan Vaz MD - When: 2 - 3 days - Reason: Recheck today's complaints Discharge Instructions: - Discharge Summary Sheet [facility] - Corneal Abrasion [facility] Forms: - Work release form hb - Medication Reconciliation Form [facility] - Thank You Letter 7 - Antibiotic Education [facility] - Patient Portal Instructions [facility] - Leadership Thank You Letter [facility] Prescriptions: - Erythromycin 5 mg/gram (0.5 %) Ophthalmic ointment - apply 1 ribbon OPHTHALMIC route every 8 hours for 7 days; 3.5 gram tube; [facility] Refills: 0, Product Selection Permitted Signatures: Cisco Marin MD MD rn Baxter, Heather, RN RN hb Hadash, Jennifer, PHARMACOGNOSIST PHARMACOGNOSIST [facility] Corrections: (The following items were deleted from the chart) 09:20 08:38 Eyes: Periorbital structures: appear normal, Pupils: equal, round, and reactive [facility] to light and accomodation, Extraocular movements: intact throughout, Conjunctiva: no acute changes, Corneas: are normal, foreign body, is not appreciated, a fluorescein strip employed to appreciate the findings, Sclera: no appreciated abnormality, Anterior chamber: normal, no hyphema, on appreciated narrow angle closure, Lids and lashes: appear normal, [facility]
[2023-09-23] MEDS ORDERED: TETRACAINE HCL 0.5% 4ML OPTH ONE (09:22)
[2023-09-23 09:31] VITALS: BP 129/80; TEMP 98.1; O2SAT 99
== END 2023-09-23 09:27 | disposition home or self-care (01) ==
LOC: ER 08:36
DX: S05.01XA Injury of conjunctiva and corneal abrasion without foreign body, right eye, initial encounter (principal)
CPT/HCPCS: 99283